=== PATIENT | male | born 1985 | race Caucasian/White ===

== ENCOUNTER → 2016-10-03 | Emergency (ER) | payer MEDICAID ==
[~2016-10-03] VITALS: Ht 180.3 cm; Wt 113.4 kg
[~2016-10-03] MED LIST: BACITRACIN15 GM TOPIC; BACTRIM DS TAB1 EAC1 ORAL; BACTRIM-DS1 EA ORAL; BACTROBAN15 GM TOPIC; BUPROPION XL300 MG ORAL; BUSPAR10 MG ORAL; Bactrim DS (160mg/800mg) tab ORAL ONE; CEPHALEXIN500 MG ORAL; DOXYCYCLINE MO100 MG ORAL; FLOMAX0.4 MG ORAL; GABAPENTIN600 MG ORAL; IBUPROFEN600 MG ORAL; KEFLEX500 MG ORAL; MUPIROCIN22 GM TOPIC; NKM; STRATTERA60 MG ORAL; WELLBUTRIN XL150 M3 ORAL; ZOFRAN ODT4 MG ORAL
--- NOTE | 2016-10-03 23:25 | Emergency Room Report ---
History of Present Illness General Chief Complaint: Skin Rash/Abscess Source: Patient Present Illness HPI Is a 31-year-old male who presents with chief complaint of rash on his arm. He has a history of cellulitis. His girlfriend is here for abscess to her finger and had MRSA. He had tattoo done 2 days ago. He had to shave his upper arm. Now he has redness around the tattoo with red bumps up and down his arms. Denies any fever or chills. Denies any nausea vomiting. Never had this problem before. Not on any medication. Allergies: Coded Allergies: No Known Allergies (Unverified , 09/08/15) Patient History Past Medical History: see triage record, old chart reviewed Past Surgical History: none Pertinent Family History: none Social History: Denies: smoking Immunizations: other Reviewed Nursing Documentation: PMH: Agreed, PSxH: Agreed Nursing Documentation-PMH Hx Cardiac Problems: No Hx Hypertension: No Hx Diabetes: No Hx Cancer: No Hx Gastrointestinal Problems: No - Appendectomy in 2007 Hx Neurological Problems: No Review of Systems Eye: Denies: blurred vision, eye pain ENT: Denies: ear pain, nose congestion, throat swelling Respiratory: Denies: cough, shortness of breath Cardiovascular: Denies: chest pain, palpitations Gastrointestinal: Denies: abdominal pain, diarrhea, nausea, vomiting Musculoskeletal: Denies: back pain, joint pain Skin: Reports: rash Neurological: Denies: headache, numbness Endocrine: Denies: increased thirst, increased urine Hematologic/Lymphatic: Denies: easy bruising All Other Systems: negative except mentioned in HPI Physical Exam Vital Signs Date Time Temp Pulse Resp B/P Pulse Ox O2 Delivery O2 Flow Rate FiO2 10/03/16 22:59 97.3 69 17 164/91 99 Room Air vital showed hypertension Sp02 EP Interpretation: reviewed, normal General Appearance: well appearing, no apparent distress, alert Head: normocephalic, atraumatic Eyes: bilateral eye EOMI, bilateral eye PERRL ENT: hearing grossly normal, normal pharynx Neck: full range of motion, supple, no meningismus Respiratory: chest non-tender, lungs clear, normal breath sounds Cardiovascular #1: regular rate, rhythm, no murmur Gastrointestinal: normal bowel sounds, non tender, no mass, no organomegaly, no bruit, non-distended Musculoskeletal: back normal, gait/station normal, normal range of motion Psychiatric: mood/affect normal Skin: warm/dry, rash - He has a large tattoo on the right deltoid area. There is surrounding cellulitis. He has scattered satellite lesion distally on his arm. no abscess. Medical Decision Making Diagnostic Impression: Primary Impression: Cellulitis of right upper extremity Additional Impression: MRSA cellulitis ER Course Patient with cellulitis of his upper extremity. No abscess. This is most likely MRSA. We'll discharge him with Bactrim. Dose of antibiotics given here. Last Vital Signs Date Time Temp Pulse Resp B/P Pulse Ox O2 Delivery O2 Flow Rate FiO2 10/03/16 22:59 97.3 69 17 164/91 99 Room Air Status: improved Disposition: HOME, SELF-CARE Condition: Stable Scripts Mupirocin (BACTROBAN CR) 15 Gm Cream..g. 1 APPLIC TOPIC THREE TIMES A DAY, #30 GM Prov: WADE DOMINGUEZ M.D. 10/03/16 Trimethoprim/Sulfamethoxazole 160/800* (BACTRIM DS TABLET*) 1 Each Tablet 1 TAB ORAL Q12H, #14 TAB 0 Refills Prov: WADE DOMINGUEZ M.D. 10/03/16 Additional Instructions: Followup with your Dr. in 2-3 days. Clean with hydrogen peroxide. Return if symptom worsen. WADE DOMINGUEZ M.D. Oct 03, 2016 23:25
[2016-10-03 23:37] VITALS: BP_SYST 134; BP_SYST 164; BP_DIAS 85; BP_DIAS 91
== END | disposition home or self-care (01) ==
LOC: EMR 23:16
DX: L03.113 Cellulitis of right upper limb (principal); B95.62 Methicillin resistant Staphylococcus aureus infection as the cause of diseases classified elsewhere
CPT/HCPCS: 99284

== ENCOUNTER 2016-10-06 07:39 | Emergency (ER) | payer MEDICAID ==
[~2016-10-06] VITALS: Ht 180.3 cm; Wt 111.1 kg
[~2016-10-06 07:39] MED LIST changes: -BUSPAR10 MG ORAL; -Bactrim DS (160mg/800mg) tab ORAL ONE; -GABAPENTIN600 MG ORAL
[2016-10-06] MEDS ORDERED: GABAPENTIN600 MG ORAL (07:59)
[2016-10-06 08:15] VITALS: BP 138/69
--- NOTE | 2016-10-06 09:20 | Emergency Room Report ---
History of Present Illness General Chief Complaint: Behavioral Complaint Source: Patient Present Illness HPI 31 YO M presents with suicidal ideation. Patient injected ~1gram heroin last night after argument with girlfriend. Intention to kill himself. 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 Denies HI, AVH, history of bipolar/ schizophrenia. Has history of anxiety. No previous suicide attempts. Patient is serious about wanting to kill himself. Denies other medical problems, meds. Didnt take ETOH or other drugs with heroin last night. Allergies: Coded Allergies: No Known Allergies (Unverified , 09/08/15) Patient History Past Medical History: psych hx Past Surgical History: none Pertinent Family History: none Social History: Reports: drug use Nursing Documentation-[facility] Past Medical History: No History, Except For Hx Hypertension: No Hx Diabetes: No Hx Cancer: No Hx Gastrointestinal Problems: No - Appendectomy in 2007 History Of Psychiatric Problem: Yes - Anxiety Hx Neurological Problems: No Review of Systems All Other Systems: negative except mentioned in HPI Physical Exam Vital Signs Date Time Temp Pulse Resp B/P Pulse Ox O2 Delivery O2 Flow Rate FiO2 10/06/16 07:50 98.8 69 14 138/69 100 Room Air Sp02 EP Interpretation: reviewed, normal General Appearance: normal inspection, well appearing, no apparent distress, alert, GCS 15, non-toxic Head: normocephalic, atraumatic Eyes: bilateral eye EOMI, bilateral eye PERRL ENT: normal ENT inspection, hearing grossly normal, normal voice Neck: normal inspection, full range of motion, supple, no bony tend Respiratory: normal inspection, lungs clear, normal breath sounds, no respiratory distress, no retraction, no wheezing Cardiovascular #1: regular rate, rhythm, no edema Gastrointestinal: normal inspection, normal bowel sounds, non tender, soft, no guarding, no hernia Genitourinary: no CVA tenderness Musculoskeletal: normal inspection, back normal, normal range of motion, Gloria' s Sign negative, other - Right upper extremity: multiple track machado, acute. 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 VSS. Afebrile. Patient calm, cooperative now. After long discussion, patient is serious about suicide at this time No HI, AVH + anxiety PLAN Medical clearance PET Reevaluation Time: 12:00 Last Vital Signs Date Time Temp Pulse Resp B/P Pulse Ox O2 Delivery O2 Flow Rate FiO2 10/06/16 07:50 98.8 69 14 138/69 100 Room Air Reevaluation Impression Labs: + for amphetamines and opiates A: Medically cleared Pending PET Patient resting comfortably Endorsed to Dr Chandler at 2pm to followup PET Disposition: XFER TO PSYCH HOSP/UNIT Condition: Serious Referrals: [facility],REFERRING (PCP) EUSEBIO JOHNSON M.D. Oct 06, 2016 09:20
[2016-10-06 10:02] LABS: BASOPHILS % (AUTO) 1.7 % (0.0-2.0); EOSINOPHILS % (AUTO) 6.4 % (0.0-3.0); LYMPHOCYTES % (AUTO) 20.6 % (20.0-45.0); MEAN CORPUSCULAR HEMOGLOBIN 29.6 PG (27.0-31.0); MEAN CORPUSCULAR HGB CONC 32.6 G/DL (32.0-36.0); MEAN CORPUSCULAR VOLUME 91 FL (80-99); MEAN PLATELET VOLUME 7.1 FL (6.5-10.1); MONOCYTES % (AUTO) 11.8 % (1.0-10.0); NEUTROPHILS % (AUTO) 59.5 % (45.0-75.0); PLATELET COUNT 265 K/UL (150-450); RED CELL DISTRIBUTION WIDTH 11.7 % (11.6-14.8); WHITE BLOOD COUNT 10.6 K/UL (4.8-10.8)
[2016-10-06 10:27] LABS: ACETAMINOPHEN < 10 ug/mL (10-30); ALANINE AMINOTRANSFERASE 20 U/L (3-41); ALBUMIN/GLOBULIN RATIO 1.4 (1.0-2.7); ALCOHOL < 10 mg/dL; ANION GAP 15 (5-15); ASPARTATE AMINO TRANSFERASE 36 U/L (5-40); CALCIUM 9.3 mg/dL (8.6-10.2); CARBON DIOXIDE 26 mEQ/L (20-30); CHLORIDE 96 mEQ/L (98-107); CREATININE 1.1 mg/dL (0.7-1.2); GLOMERULAR FILTRATION RATE > 60 mL/min (>60); HEMOLYSIS 6; POTASSIUM 3.9 mEQ/L (3.4-4.9); SODIUM 137 mEQ/L (135-145); TOTAL PROTEIN 7.2 g/dL (6.6-8.7)
[2016-10-06 14:00] VITALS: BP 111/70
[2016-10-06] MEDS ORDERED: LORazepam 1mg tab ORAL ONE (15:30)
[2016-10-06 16:16] VITALS: BP 121/68
== END 2016-10-06 16:15 | disposition home or self-care (01) ==
LOC: EMR 08:04
DX: R45.851 Suicidal ideations (principal); F41.9 Anxiety disorder, unspecified; F31.9 Bipolar disorder, unspecified; F20.9 Schizophrenia, unspecified
CPT/HCPCS: 36415; 80053; 80300; 80329; 85025

== ENCOUNTER 2016-12-03 19:50 | Emergency (ER) | payer MEDICAID ==
[~2016-12-03] VITALS: Ht 180.3 cm; Wt 106.6 kg
[~2016-12-03 19:50] MED LIST changes: +GABAPENTIN600 MG ORAL
[2016-12-03] MEDS ORDERED: Cephalexin 500mg cap ORAL ONE (20:30)
[2016-12-03] MEDS ORDERED: Lidocaine 2% 20mg/ml/Epi 0.005mg/ml 20ml vial INJ ONE (20:30)
[2016-12-03] MEDS ORDERED: Bactrim DS (160mg/800mg) tab ORAL ONE (20:30)
[2016-12-03] MEDS ORDERED: Norco 5mg/325mg tab ORAL ONE (20:30)
[2016-12-03 20:56] VITALS: BP 154/82
[2016-12-03] MEDS ORDERED: GABAPENTIN600 MG ORAL (21:01)
[2016-12-03] MEDS ORDERED: BACTRIM DS TAB1 EAC1 ORAL (21:08)
[2016-12-03] MEDS ORDERED: IBUPROFEN600 MG ORAL (21:08)
[2016-12-03] MEDS ORDERED: KEFLEX500 MG ORAL (21:08)
[2016-12-03 21:25] VITALS: BP 154/82
[2016-12-04] MEDS ORDERED: BUSPAR10 MG ORAL (04:01)
--- NOTE | 2016-12-04 13:37 | Emergency Room Report ---
History of Present Illness General Chief Complaint: Skin Rash/Abscess Source: Patient Present Illness HPI Patient is a 31-year-old male who presented after increased pain to his right forearm. Patient gradual onset of symptoms. Patient had been injecting methamphetamine into his right upper extremity. The patient noticed some swelling as well as some increased redness and pain. He denied any fever. He denied any other locations of pain. The patient had prior history of methamphetamine abuse. He denies prior history of HIV or diabetes. Allergies: Coded Allergies: No Known Allergies (Unverified , 09/08/15) Patient History Past Medical History: see triage record Reviewed Nursing Documentation: PMH: Agreed, PSxH: Agreed Nursing Documentation-PMH Past Medical History: No Stated History Hx Hypertension: No Hx Diabetes: No Hx Cancer: No Hx Gastrointestinal Problems: No - Appendectomy in 2007 Hx Neurological Problems: No Review of Systems All Other Systems: negative except mentioned in HPI Physical Exam Vital Signs Date Time Temp Pulse Resp B/P Pulse Ox O2 Delivery O2 Flow Rate FiO2 12/03/16 20:18 99.0 109 17 158/79 100 Room Air General Appearance: well appearing, no apparent distress, alert, GCS 15 Head: normocephalic, atraumatic ENT: hearing grossly normal, normal voice Neck: full range of motion, supple Respiratory: no respiratory distress, speaking full sentences Cardiovascular #1: normal inspection, normal peripheral pulses, regular rate, rhythm Gastrointestinal: normal inspection Musculoskeletal: swelling - right upper extremity with erythema and fluctuance Neurologic: normal inspection, alert, oriented x3, responsive, culinary arts instructor III-XII nml as tested, normal gait Psychiatric: normal inspection, mood/affect normal Skin: other - erythema and fluctuance about 4 cm in diameter Procedures Incision and Drainage Incision and Drainage : Consent: Verbal Site: right bicep Blade Size: 15 Wound Location: upper extremity Wound Length (cm): 1 Wound Explored: contaminated Anesthesia: Lidocaine w/ Epi Volume Anesthetic (ccs): 4 Patient Tolerated: Well Complications: None Progress drained approximately 10 cc of purulent material. Medical Decision Making Diagnostic Impression: Primary Impression: Skin abscess Additional Impression: Substance abuse ER Course Patient presented for upper extremity pain. Differential diagnosis included was not limited to cellulitis, abscess, necrotizing fasciitis, bacteremia among others. Patient shows no systemic signs or symptoms. The patient was given Willard for pain. The patient was given oral antibiotics. Abscess was incised and drained. The patient was neurologically intact after abscess drainage. Patient was noted to have a large amount purulent material. A sterile dressing was applied. Patient was given prescription for oral antibiotics and pain medication. Patient is advised not using drugs.The patient is advised to have the wound rechecked in approximately 2 days.Patient was advised to keep wound covered. Last Vital Signs Date Time Temp Pulse Resp B/P Pulse Ox O2 Delivery O2 Flow Rate FiO2 12/03/16 21:25 98.9 105 19 154/82 100 Room Air Status: improved Disposition: HOME, SELF-CARE Condition: Stable Scripts Ibuprofen* (MOTRIN*) 600 Mg Tablet 600 MG ORAL Q8H Y for For Pain, #30 TAB 0 Refills Prov: Regan Chandler 12/03/16 Cephalexin* (KEFLEX*) 500 Mg Capsule 500 MG ORAL Q6H, #28 CAP 0 Refills Prov: Regan Chandler 12/03/16 Trimethoprim/Sulfamethoxazole 160/800* (BACTRIM DS TABLET*) 1 Each Tablet 1 TAB ORAL TWICE A DAY, #20 TAB Prov: Regan Chandler 12/03/16 Referrals: [facility],REFERRING (PCP) Patient Instructions: Abscess Regan Chandler Dec 04, 2016 13:37
== END 2016-12-03 21:25 | disposition home or self-care (01) ==
LOC: EMR 20:49
DX: L02.413 Cutaneous abscess of right upper limb (principal); F15.10 Other stimulant abuse, uncomplicated
CPT/HCPCS: 99284

== ENCOUNTER 2016-12-04 02:39 | Emergency (ER) | payer MEDICAID ==
[~2016-12-04] VITALS: Ht 180.3 cm; Wt 108.9 kg
[2016-12-04 03:07] VITALS: BP 135/84
[2016-12-04] MEDS ORDERED: BUSPAR10 MG ORAL (04:01)
--- NOTE | 2016-12-04 04:02 | Emergency Room Report ---
History of Present Illness General Chief Complaint: General Complaint Source: Patient Present Illness HPI Is a 31-year-old male with a history of IV drug use. He was inject himself with heroin. He he came in earlier today with abscess to his right arm. Was I& D by Dr. Chandler. He left and came back now because he said he felt anxious. Denies suicidal thoughts or homicidal thought. He said he felt his way coming down from the drugs. He does not want use drugs anymore. Denies any other complaint. Present similar to this in the past. Allergies: Coded Allergies: No Known Allergies (Unverified , 09/08/15) Patient History Past Medical History: see triage record, old chart reviewed Past Surgical History: other Pertinent Family History: none Social History: Reports: alcohol use Immunizations: other Reviewed Nursing Documentation: PMH: Agreed, PSxH: Agreed Nursing Documentation-PMH Past Medical History: No Stated History Hx Hypertension: No Hx Diabetes: No Hx Cancer: No Hx Gastrointestinal Problems: No - Appendectomy in 2007 Hx Neurological Problems: No Review of Systems Eye: Denies: blurred vision, eye pain ENT: Denies: ear pain, nose congestion, throat swelling Respiratory: Denies: cough, shortness of breath Cardiovascular: Denies: chest pain, palpitations Gastrointestinal: Denies: abdominal pain, diarrhea, nausea, vomiting Musculoskeletal: Denies: back pain, joint pain Skin: Denies: rash Neurological: Denies: headache, numbness Endocrine: Denies: increased thirst, increased urine Hematologic/Lymphatic: Denies: easy bruising All Other Systems: negative except mentioned in HPI Physical Exam Vital Signs Date Time Temp Pulse Resp B/P Pulse Ox O2 Delivery O2 Flow Rate FiO2 12/04/16 02:58 98.4 84 16 135/84 100 Room Air vitals normal Sp02 EP Interpretation: reviewed, normal General Appearance: well appearing, no apparent distress, alert Head: normocephalic, atraumatic Eyes: bilateral eye EOMI, bilateral eye PERRL ENT: hearing grossly normal, normal pharynx Neck: full range of motion, supple, no meningismus Respiratory: chest non-tender, lungs clear, normal breath sounds Cardiovascular #1: regular rate, rhythm, no murmur Gastrointestinal: normal bowel sounds, non tender, no mass, no organomegaly, no bruit, non-distended Musculoskeletal: back normal, gait/station normal, normal range of motion, other - Right upper arm: Erythema status post I&D. Neurologic: alert, oriented x3 Psychiatric: mood/affect normal Skin: warm/dry Medical Decision Making Diagnostic Impression: Primary Impression: Anxiety Additional Impression: Drug abuse ER Course patient with drug abuse and anxiety. Told patient that I will hold off any controlled substance. We'll discharge home with referred for [facility]. This patient is a chronic risk of self injury due to poor impulse control, limited coping skills, and judgment intermittently impaired by intoxication. I believe that the available clinical evidence to suggest that these characteristics derived primarily from personality disorder and are likely very stable over time. Hospitalization would likely attenuate risk of self-harm only during long term period, without lasting risk reduction. Serious self-harm , while possible, would likely be inadvertent, and because of impulsivity, and foreseeable. For these reasons, I do not believe hospitalization would provide meaningful reduction in risk of self-harm. Last Vital Signs Date Time Temp Pulse Resp B/P Pulse Ox O2 Delivery O2 Flow Rate FiO2 12/04/16 03:07 98.4 84 16 135/84 100 Room Air Status: improved Disposition: HOME, SELF-CARE Condition: Stable Scripts Buspirone Hcl* (BUSPAR*) 10 Mg Tablet 10 MG ORAL THREE TIMES A DAY, #15 TAB 0 Refills Prov: WADE DOMINGUEZ M.D. 12/04/16 Referrals: [facility],REFERRING (PCP) Additional Instructions: Abstain from drugs and alcohol. Call [facility] for followup. Return if worse. Followup with your DrFabiano within 7 days. WADE DOMINGUEZ M.D. Dec 04, 2016 04:01
[2016-12-04 04:29] VITALS: BP 117/71
== END 2016-12-04 04:31 | disposition home or self-care (01) ==
LOC: EMR 03:20
DX: F41.9 Anxiety disorder, unspecified (principal); F11.10 Opioid abuse, uncomplicated; Z90.49 Acquired absence of other specified parts of digestive tract
CPT/HCPCS: 99283